=== PATIENT | female | born 1950 | race Caucasian/White ===

== ENCOUNTER 2023-10-16 21:13 | Emergency (ER) | payer OTHER ==
[~2023-10-16] VITALS: Ht 175.3 cm; Wt 70.3 kg
[2023-10-16 23:11] VITALS: BP 188/89; PULSE 82; RESP 18
[2023-10-17] MEDS: PROPOFOL 10 MG/ML 20ML VIAL IV SCH (02:28)
[2023-10-17] MEDS: KETOROLAC 30MG VIAL (30MG/ML) IM ONE (02:29)
== END 2023-10-17 04:38 | disposition home or self-care (01) ==
LOC: EDH 21:13
DX: S43.014A Anterior dislocation of right humerus, initial encounter (principal); I10 Essential (primary) hypertension; W01.0XXA Fall on same level from slipping, tripping and stumbling without subsequent striking against object, initial encounter; Y93.89 Activity, other specified; Y92.89 Other specified places as the place of occurrence of the external cause; Y99.8 Other external cause status
CPT/HCPCS: 99284; 73030 ×2; 23650; 96372; J2704; J1885; J3490

== ENCOUNTER 2024-06-28 15:08 | Emergency (ER) | payer OTHER ==
[~2024-06-28] VITALS: Ht 175.3 cm; Wt 70.3 kg
[2024-06-28] MEDS: CLINDAMYCIN 150 MG CAP PO ONE (16:07)
[2024-06-28] MEDS: cloNIDine HCL 0.1 MG TABLET PO ONE (16:20)
[2024-06-28] MEDS ORDERED: CLIN-141 PO (16:22)
[2024-06-28 17:16] VITALS: BP 215/90; PULSE 72; RESP 18; TEMP 98.2; O2SAT 98
== END 2024-06-28 17:27 | disposition home or self-care (01) ==
LOC: EDH 15:08
DX: L03.116 Cellulitis of left lower limb (principal); L02.416 Cutaneous abscess of left lower limb; L30.9 Dermatitis, unspecified; I10 Essential (primary) hypertension; Z88.0 Allergy status to penicillin; Z88.2 Allergy status to sulfonamides; Z88.5 Allergy status to narcotic agent; Z90.710 Acquired absence of both cervix and uterus

== ENCOUNTER 2024-11-14 21:55 | Emergency (ER) | payer OTHER ==
[~2024-11-14] VITALS: Ht 175.3 cm; Wt 68.0 kg
[~2024-11-14 21:55] MED LIST: CLIN-141 PO
--- NOTE | 2024-11-14 22:10 | ERN ---
ED Note History of Present Illness Stated Complaint: PAINFUL BITE ON LEFT LEG Chief Complaint: Multiple Complaints Time Seen by MD: 21:58 Dictation: This is a 74-year-old female who presented to the emergency room for evaluation of a painful lesion on her left leg. Apparently this started on 06 of November as a small insect bite and she has been seen by her primary care physician since then. She has been given Rocephin every other day for the past 1 week as well as doxycycline 100 mg twice a day. The lesion had increased in size and started draining which has stopped since then there is redness surrounding the lesion and she was concerned and came to the ER for further evaluation apparently her spouse is on hospice in the hospice nurse encouraged her to come to the ER Patient does not recall what type of insect bite and she has not seen if it was a spider No fever chills rigors. She has not outdoor cat but no new pets. Initial blood pressure was 232/134 and 241/123 and patient's basically stated that she has a white coat syndrome heart rate is 76 respirations 16 temperature 98.2 pulse oximetry 98% on room air Allergies: Coded Allergies: Penicillins (Unverified Allergy, Unknown, 10/16/23) Sulfa (Sulfonamide Antibiotics) (Unverified Allergy, Unknown, 10/16/23) clindamycin (Unverified Allergy, Unknown, 11/14/24) codeine (Unverified Allergy, Unknown, 10/16/23) Home Meds Active Scripts Clindamycin HCl (Clindamycin HCl) 300 Mg Capsule, 1 CAP PO QID for 10 Days, #40 CAP 0 Refills Prov:COLEMAN CALLAHAN [employer]GER 06/28/24 Past Medical History Past Medical History: Hypertension Surgical History: Hysterectomy Family History: Negative Social History: Negative History: Not Applicable RN Note Reviewed/Agreed w/PFSH: Yes Review of System Dictation Constitutional: Negative for fever,chills, and weight loss Eyes: Negative for injury, pain,redness, and discharge ENT: Negative for injury,pain or swelling Cardiovascular: Negative for chest pain, palpitations, and edema Respiratory: Negative for shortness of breath, cough, and wheezing, Abdomen/GI: Negative for abdominal pain, nausea, vomiting, diarrhea, and constipation Back: Negative for injury and pain : Negative for injury, bleeding and discharge MS/Extremity: Negative for injury and deformity Skin: Negative for rash, and discoloration skin lesion is on the lateral aspect of the left lower leg midway between knee and ankle joint. Neuro: Negative for headache, weakness, numbness, tingling, and seizure Psych: Negative for suicide ideation, homicidal ideation, and hallucinations Initial Vital Sign VS Vital Signs Date Time Temp Pulse Resp B/P (MAP) Pulse Ox O2 Delivery O2 Flow Rate FiO2 11/14/24 21:56 98.2 105 20 241/123 100 Room Air 11/14/24 22:15 0 21 Physical Exam Dictation General: awake, alert, NAD Head/Face: Normocephalic, atraumatic Eyes: PERRL, EOMI, vision at baseline ENT: oral cavity clear, TMs clear, no signs of infection Neck: Trachea midline, supple, no nuchal rigidity Cardiovascular: RRR, normal S1/S2, No MRGs, no JVD Respiratory: CTAB, no respiratory distress, No rales or wheezes Abdomen: Soft, non-tender, non-distended, normal bowel sounds, no guarding or rebound. Skin: Warm, dry, normal turgor, no rash MS/Extremity: Pulses equal, no cyanosis, neurovascular intact, FROM Neuro: COAx4, GCS 15, strength 5/5, CN 2-12 intact, normal cerebellar exam, normal gait, Psych: Normal behavior, mood, and affect normal Extremities-trace edema without any palpable cords, Homans sign is negative Results (Laboratory/Radiology) Laboratory/Radiology Laboratory Tests Test 11/14/24 22:29 11/14/24 23:30 White Blood Count 7.3 K/uL (4.8-10.8) Red Blood Count 3.59 MIL/uL (4.00-5.50) L Hemoglobin 10.5 g/dL (12.0-16.0) L Hematocrit 31.5 % (36-48) L Mean Corpuscular Volume 87.7 fL (79-99) Mean Corpuscular Hemoglobin 29.2 pg (27.0-33.0) Mean Corpuscular Hemoglobin Concent 33.3 g/dL (32.0-36.0) Red Cell Distribution Width 13.2 % (11.0-15.5) Platelet Count 351 K/uL (130-400) Mean Platelet Volume 8.7 fL (7.5-10.5) Immature Granulocyte % (Auto) 0.7 % (0-1) Neutrophils (%) (Auto) 66.7 % (40.0-77.0) Lymphocytes (%) (Auto) 18.8 % (21.0-51.0) L Monocytes (%) (Auto) 12.3 % (3.0-13.0) Eosinophils (%) (Auto) 0.8 % (0.0-8.0) Basophils (%) (Auto) 0.7 % (0.0-5.0) Neutrophils # (Auto) 4.8 K/uL (1.8-7.7) Lymphocytes # (Auto) 1.4 K/uL (1.0-4.8) Monocytes # (Auto) 0.9 K/uL (0.1-1.0) Eosinophils # (Auto) 0.06 K/uL (0.00-0.70) Basophils # (Auto) 0.05 K/uL (0.00-0.20) Absolute Immature Granulocyte (auto 0.05 K/uL (0-1) Nucleated Red Blood Cells 0.0 % (0.0-0.19) Sodium Level 123 mmol/L (136-145) L Potassium Level 3.7 mmol/L (3.5-5.1) Chloride Level 88 mmol/L (101-111) *L Carbon Dioxide Level 30 mmol/L (21-32) Blood Urea Nitrogen 16 mg/dL (7-18) Creatinine 0.8 mg/dL (0.5-1.0) Glomerular Filtration Rate Calc 76 mL/min (>90) Random Glucose 106 mg/dL (70-105) H Total Calcium 9.4 mg/dL (8.5-10.1) Total Creatine Kinase 69 U/L (21-232) Troponin I High Sensitivity < 4.0 ng/L (4-50) L B-Type Natriuretic Peptide 93 pg/mL (0-100) Urine Color COLORLESS (YELLOW) Urine Appearance CLEAR (CLEAR) Urine pH 7.0 (5.0-8.0) Urine Specific [place] 1.003 (1.001-1.031) Urine Protein NEGATIVE mg/dL (NEGATIVE) Urine Glucose (UA) NEGATIVE mg/dL (NEGATIVE) Urine Ketones NEGATIVE mg/dL (NEGATIVE) Urine Occult Blood NEGATIVE (NEGATIVE) Urine Nitrate NEGATIVE (NEGATIVE) Urine Bilirubin NEGATIVE mg/dL (NEGATIVE) Urine Urobilinogen 0.2 mg/dL (0.2-1.0) Urine Leukocyte Esterase NEGATIVE Katherin/uL ED Course ED Course Orders Procedure Category Date Status Time Cardiac Panel LAB 11/14/24 Complete 22:17 Cbc With Differential LAB 11/14/24 Complete 22:17 Basic Metabolic Panel LAB 11/14/24 Complete 22:17 B-Type Natriuretic LAB 11/14/24 Complete Peptide 22:17 Urinalysis Profile LAB 11/14/24 Complete 22:17 Hydralazine 20mg Inj PHA 11/14/24 Complete (Apresoline 20mg In 22:30 0.9%Nacl 1000ml (Ns PHA 11/14/24 Complete 1000ml) 23:30 Clonidine Hcl 0.1 Mg PHA 11/14/24 Complete Tablet (Catapres 0. 23:30 Current Medications Medications (Trade) Dose Ordered Sig/Jayme Route PRN Reason Start Time Stop Time Status Last Admin Dose Admin Clonidine HCl (CATApres 0.1 mg TAB) 0.1 mg ONCE ONCE PO 11/14/24 23:30 11/14/24 23:31 DC 11/14/24 23:37 Hydralazine HCl (APRESOLine 20MG INJ) 10 mg ONCE ONCE IV 11/14/24 22:30 11/14/24 22:31 DC 11/14/24 22:40 Sodium Chloride 1,000 ml @ 0 mls/hr ONCE ONCE IV 11/14/24 23:30 11/14/24 23:31 DC 11/14/24 23:37 Vital Signs Date Time Temp Pulse Resp B/P (MAP) Pulse Ox O2 Delivery O2 Flow Rate FiO2 11/15/24 00:33 89 16 171/83 99 Room Air* 0 21 11/14/24 23:37 90 190/84 11/14/24 22:15 98.1 76 16 233/94 97 Room Air* 0 21 11/14/24 21:56 98.2 105 20 241/123 100 Room Air We will perform diagnostic labs, and administer medications according to the patient's complaint. Once the results are available, will review and personally interpreted the labs to rule out any acute life-threatening emergency the trach require immediate intervention and treatment. I will then re-evaluate the patient after treatment and diagnostic exams have return to determine whether the patient requires any further testing, can safely be discharged home or need further admission to hospital for additional treatment and evaluation. Labs reviewed CBC shows a hemoglobin of 10.5 BNP 7 showed a sodium of 123 chloride of 88. Troponins were negative Patient forgot to mention that she was given furosemide for leg swelling by the PCP which she has taken for a few days now. I went over the labs and blood pressure has definitely improved since admission. 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 Have reiterated diligent compliance with her antihypertensives and educated her that she could go onto rebound hypertensive crisis like this when she misses her clonidine dosage. I also explained to her to elevate her left leg and place some ice packs to reduce the inflammation. It is conceivable that she has sustained a brown recluse spider bite although the patient has not seen the spider. She will continue the antibiotics given by her primary care physician and follow up scheduled appointment Medical Decision Making MDM MDM: Differential diagnosis: Rationale: Tests considered and ordered secondary to shared decision making include: Previous outside records reviewed: Old ER visits. Risk of complication and/or morbidity or mortality of patient management: None Medications-Per medication reconciliation Need for hospitalization: Patient does not meet criteria for hospitalization. Need for emergency major/minor surgery: No There are no social concerns with this patient. Prescription drug management Prescriptions will include symptomatic care Patient's prior external medical records from other ER visits were reviewed by me as indicated. Prior testing and results from previous visits were reviewed. Prior tests were taken into account with medical decision making and resource utilization, independent historian/historians were used to obtain complete medical history. I independently interpreted the test that were performed, results were reviewed by me and considered findings on radiology if ordered. Medical management and examination interpretation discussions were had by me with other qualified healthcare professionals as indicated for the patient's care. Problem List Problem List: (1) Cellulitis and abscess of left lower extremity (2) Hypertension, accelerated (3) Brown recluse spider bite or sting DX & DISP Disposition: Discharge Departure Impression: Primary Impression: Cellulitis and abscess of left lower extremity Additional Impressions: Hypertension, accelerated, Brown recluse spider bite or sting Condition: Stable Additional Instructions: Patient and the caregiver have been informed of all the diagnostic tests and the imaging conducted during the today's visit to the emergency room and has verbalized understanding of the results I have personally reviewed and i nterpreted all diagnostic exams performed here in the ER today as well as the vital signs documented by the nursing staff. The patient is now being discharged to home and should follow up with the primary care physician or the specialist as directed by the ER staff. Follow-up with primary care provider in 1 to 2 days. Take medications as directed here in the emergency room. Okay to continue home medications unless otherwise discussed during your visit in the emergency room today. Return to your nearest emergency room if symptoms worsen or if there is no improvement. Call 911 if you need immediate assistance. Take Tylenol or Motrin [id number] as needed and if no contraindications are present. Increase oral hydration. A wound culture or urine culture was ordered here in the emergency room department please follow-up with primary care provider and advise them to get repeat ports from our facility. If you had any Rene wrap/splints that were applied here, please do not remove them until you see your primary care or specialty. She will be following up with the primary care physician on Saturday and I recommended repeating a BNP 7 and stop the furosemide for now. Elevate the left leg and ice packs Referrals: FERNANDO NELSON MD (PCP) JASS DO MD Nov 14, 2024 22:10
[2024-11-14 22:15] VITALS: TEMP 98.1
[2024-11-14 22:40] LABS: BASOPHILS # (AUTO) 0.05 K/uL (0.00-0.20); BASOPHILS % (AUTO) 0.7 % (0.0-5.0); EOSINOPHILS # (AUTO) 0.06 K/uL (0.00-0.70); EOSINOPHILS % (AUTO) 0.8 % (0.0-8.0); HEMATOCRIT 31.5 % (36-48); IMMATURE GRANULOCYTE ABSOLUTE 0.05 K/uL (0-1); LYMPHOCYTES # (AUTO) 1.4 K/uL (1.0-4.8); LYMPHOCYTES % (AUTO) 18.8 % (21.0-51.0); MEAN CORPUSCULAR HEMOGLOBIN 29.2 pg (27.0-33.0); MEAN CORPUSCULAR HGB CONC 33.3 g/dL (32.0-36.0); MEAN CORPUSCULAR VOLUME 87.7 fL (79-99); MONOCYTES # (AUTO) 0.9 K/uL (0.1-1.0); MONOCYTES % (AUTO) 12.3 % (3.0-13.0); NEUTROPHILS # (AUTO) 4.8 K/uL (1.8-7.7); NEUTROPHILS % (AUTO) 66.7 % (40.0-77.0); PLATELET COUNT (AUTO) 351 K/uL (130-400); RED BLOOD CELL COUNT(AUTO) 3.59 MIL/uL (4.00-5.50); RED CELL DISTRIBUTION WIDTH 13.2 % (11.0-15.5); WHITE BLOOD COUNT (AUTO) 7.3 K/uL (4.8-10.8)
[2024-11-14] MEDS: hydrALAZine 20MG/ML VIAL IV ONE (22:40)
[2024-11-14 22:54] LABS: CARBON DIOXIDE 30 mmol/L (21-32); CREATINE KINASE, TOTAL 69 U/L (21-232); CREATININE 0.8 mg/dL (0.5-1.0); GLOMERULAR FILTR. RATE CALC 76 mL/min (>90); GLUCOSE,RANDOM 106 mg/dL (70-105); POTASSIUM 3.7 mmol/L (3.5-5.1); SODIUM SERUM 123 mmol/L (136-145); UREA NITROGEN, BLOOD 16 mg/dL (7-18)
[2024-11-14 22:55] LABS: CHLORIDE 88 mmol/L (101-111)
[2024-11-14 23:06] LABS: B-TYPE NATRIURETIC PEPTIDE 93 pg/mL (0-100)
[2024-11-14] MEDS: cloNIDine HCL 0.1 MG TABLET PO ONE (23:37)
[2024-11-14] MEDS: 0.9%NACL 1000ML 1,000 ML IV ONE (23:37)
[2024-11-14 23:53] LABS: APPEARANCE,URINE CLEAR (CLEAR); BILIRUBIN,URINE NEGATIVE (NEGATIVE); COLOR,URINE COLORLESS (YELLOW); GLUCOSE, URINE (UA) NEGATIVE (NEGATIVE); KETONES,URINE NEGATIVE (NEGATIVE); LEUKOCYTE ESTERASE ,URINE NEGATIVE Leu/uL (NEGATIVE); NITRATE,URINE NEGATIVE (NEGATIVE); OCCULT BLOOD,URINE NEGATIVE (NEGATIVE); PROTEIN,URINE NEGATIVE (NEGATIVE); UROBILINOGEN,URINE 0.2 mg/dL (0.2-1.0)
[2024-11-14 23:54] LABS: ADD UA MICROSCOPIC NO
[2024-11-15 00:33] VITALS: BP 171/83; PULSE 89; RESP 16; O2SAT 99
== END 2024-11-15 01:17 | disposition home or self-care (01) ==
LOC: EDH 21:55
DX: T63.331A Toxic effect of venom of brown recluse spider, accidental (unintentional), initial encounter (principal); L03.116 Cellulitis of left lower limb; I10 Essential (primary) hypertension; Z88.0 Allergy status to penicillin; Z88.1 Allergy status to other antibiotic agents; Z88.2 Allergy status to sulfonamides; Z88.5 Allergy status to narcotic agent; Z90.710 Acquired absence of both cervix and uterus; Y92.89 Other specified places as the place of occurrence of the external cause
CPT/HCPCS: 99284; 96374; 96361; 82550; 84484; 80048; 83880; 85025; 81003; 36415; J7030; J0360

== ENCOUNTER → 2025-02-19 | Outpatient (CLI) | payer OTHER ==
--- NOTE | 2025-02-22 10:22 | HMCIMG ---
PROCEDURE: MARLENE DIAGNOSTIC UNILATERAL, US BREAST COMPLETE UNILATERAL HISTORY: Abnormal mammogram COMPARISON: 01/15/2025 TECHNIQUE: Right breast digital diagnostic mammogram with CAD was performed. No additional views were obtained. Tomographic images of right breast were obtained. Right breast ultrasound was also performed. FINDINGS: There are scattered areas of fibroglandular density. There is no evidence of a dominant mass, or suspicious microcalcification. There is no evidence of nipple retraction or skin thickening. Right breast ultrasound shows no evidence of cystic or hypoechoic mass. There is right axillary lymph node measuring 17 x 19 mm. IMPRESSION: 1. Stable right breast mammogram. No evidence of cystic or hypoechoic mass is seen of the right breast. BI-RADS: CATEGORY 2: BENIGN FINDINGS Recommend monthly self breast exam as well as annual clinical examination. A negative x-ray should not delay biopsy if a dominant or clinically suspicious mass is present, since 8-10% of cancers are not identified by mammography. Dense breasts particularly, may obscure an underlying neoplasm. Some of these may be detected clinically and therefore, clinical examination is an essential part of breast evaluation.
== END | disposition home or self-care (01) ==
LOC: RAH 08:42
PROVIDERS: ATTEND Family Medicine
DX: R92.321 Mammographic fibroglandular density, right breast (principal); R92.8 Other abnormal and inconclusive findings on diagnostic imaging of breast
CPT/HCPCS: 76641; 77061; 77065